=== PATIENT | female | born 1985 ===

== ENCOUNTER → 2017-10-16 | Outpatient (CLI) | payer SELFPAY ==
[2017-10-19 11:25] LABS: HEPATITIS B SURFACE ANTIBODY POSITIVE (POSITIVE)
[2017-10-19 11:34] LABS: RUBELLA IgG QUALITATIVE IMMUNE (IMMUNE)
[2017-10-20 00:07] LABS: RUBEOLA IgG ANTIBODY >300.0 AU/mL (Immune >29.9)
== END ==
LOC: M WUC 15:21
DX: Z02.1 Encounter for pre-employment examination (principal)
CPT/HCPCS: 86762